=== PATIENT | female | born 2005 | race Caucasian/White ===

== ENCOUNTER → 2024-06-20 12:53 | Outpatient (REF) | payer BC, SELFPAY | LOC: DHSLP 12:53 | PROVIDERS: ATTENDING PHYSICIAN Family Medicine; FAMILY PHYSICIAN Family Medicine | DX: G47.52 REM sleep behavior disorder (principal); R06.83 Snoring | CPT/HCPCS: 95810 ==

== ENCOUNTER → 2024-06-21 10:50 | Outpatient (REF) | payer BC, SELFPAY | LOC: DHSLP 10:50 | PROVIDERS: ATTENDING PHYSICIAN Internal Medicine; FAMILY PHYSICIAN Family Medicine | DX: G47.419 Narcolepsy without cataplexy (principal) | CPT/HCPCS: 95805 ==